=== PATIENT | male | born 1975 | race African-American/Black ===

== ENCOUNTER 2024-11-12 23:14 | Emergency (ER) | payer SELFPAY ==
[2024-11-13] MEDS ORDERED: DIPHENHYDRAMINE 50 MG/ML VIAL ONE (00:42)
[2024-11-13] MEDS ORDERED: KETOROLAC 30 MG/ML INJ ONE (00:42)
[2024-11-13] MEDS ORDERED: NA CHLORIDE 0.9% 50 ML ONE (00:43)
[2024-11-13] MEDS ORDERED: METOCLOPRAMIDE 10 MG/2mL INJ ONE (00:43)
--- NOTE | 2024-11-13 00:52 | RAD REPORT ---
EXAM: Chest Single View CLINICAL INDICATION: 49 year-old male with feeling unwell. TECHNIQUE: Single view, AP portable chest was obtained. COMPARISON: None. FINDINGS: Unremarkable cardiac and mediastinal silhouette. Heart size is normal. Low lung volumes without focal opacity, pneumothorax or pleural effusions. The visualized bones are within normal limits. IMPRESSION: No acute pulmonary abnormalities. Electronically signed by: Flower Walter MD 11/13/2024 12:44 AM CDT Transcribed Date/Time: 11/13/2024 12:51 AM
[2024-11-13 01:04] LABS: PT Prothrombin Time 11.7 SECONDS (10-13.0); Protime INR 1.03
[2024-11-13 01:08] LABS: Absolute Eosinophils 0.1 K/uL (0-0.5); Absolute Lymphocytes (CBC) 1.7 K/uL (0.7-4.9); Absolute Monocytes 0.4 K/uL (0.1-1.3); Absolute Neutrophil 1.8 K/uL (1.8-8.0); Basophils % 0.7 % (0-1.3); Eosinophils % 3.2 % (0-4.4); Hematocrit 41.1 % (39.6-49.0); Hemoglobin 13.9 g/dL (13.6-17.9); Lymphocytes % 41.8 % (15.3-44.8); MCH 28.6 pg (27.0-35.0); MCHC 33.9 g/dL (32.0-36.0); MCV 84.4 fL (80-100); MPV 7.9 fL (7.6-11.3); Neutrophils % 44.3 % (41.7-73.7); Nucleated Red Blood Cells % 0.1 % (0-0); Platelets 217 thou/uL (152-406); RBC Red Blood Cell Count 4.87 M/uL (4.33-5.43); Red Cell Distribution Width 13.5 % (12.1-15.2)
[2024-11-13 01:16] LABS: ALT/SGPT 37 U/L (16-61); AST/SGOT 19 U/L (15-37); Albumin 3.4 g/dL (3.4-5.0); Albumin/Globulin Ratio 0.9 (1.1-1.8); Alkaline Phosphatase 62 U/L (45-117); Anion Gap 6.7 mEq/L (5.0-15.0); BUN Blood Urea Nitrogen 11 mg/dL (7-18); Bicarbonate 28 mEq/L (21-32); Bilirubin Total 0.4 mg/dL (0.2-1.0); Glomerular Filtration Rate 107 ml/min (=/>90); Glucose Level 112 mg/dL (74-106); Magnesium 2.2 mg/dL (1.6-2.4); NT PRO-BNP 11 pg/mL (<125); Potassium 3.7 mEq/L (3.5-5.1); Protein, Total 7.4 g/dL (6.4-8.2); Sodium Level 137 mEq/L (136-145)
--- NOTE | 2024-11-13 01:18 | RAD REPORT ---
EXAM: Head Brain Wo Cont CLINICAL INDICATION: 49-year-old male with new onset headache. COMPARISON: None. TECHNIQUE: CT brain without contrast. This exam was performed according to our departmental dose o ptimization program which includes use of automated exposure control, adjustment of the mA and/or kV according to patient size and/or use of iterative reconstruction technique. FINDINGS: The ventricles, sulci, and cisterns are within normal limits. The mata-white matter differentiati on is preserved. There is no mass effect, midline shift, intra- or extra-axial fluid collection/acute hemorrhage. The osseous structures are unremarkable. The paranasal sinuses and m astoid air cells are clear. IMPRESSION: No acute intracranial abnormalities. Electronically signed by: Flower Walter MD 11/13/2024 12:52 AM CDT RP Due to temporary technical issues with the PACS/[email or web address] reporting system, reports are being althea d by the in-house radiologist without review as a courtesy to ensure prompt reporting the interpreting radiologist is fully responsible for the content of the report. Transcribed Date/Time: 11/13/2024 1:18 AM
[2024-11-13 01:39] LABS: Bilirubin Direct < 0.2 mg/dL (0-0.2); Bilirubin Indirect, Calculated 0.2 mg/dL (0.2-0.8); Troponin High Sensitivity < 3.0 pg/mL (<58.9)
--- NOTE | 2024-11-13 03:12 | EDPHYS ---
Physician Documentation [facility] Name: Elfego Thompson Age: 49 yrs Sex: Male : 1975 Arrival Date: 11/12/2024 Time: 23:14 Bed 20 Private MD: ED Physician Jr Tran HPI: 11/12 23:18 This 49 yrs old Black Male presents to ER via Unassigned with complaints of General sp4 complaint . 23:34 49-year-old male presents with moderate to severe headache starting 1 week ago. Patient sp4 has history of diabetes, hypertension, hyperlipidemia. Patient history of CAD prior VT. Patient reported elevated blood pressure at home today. Headache is new. 23:35 Medications at home include lisinopril, metformin, Plavix 75 mg daily.. sp4 Historical: - Allergies: 23:32 No Known Allergies; me1 - PMHx: 23:32 Myocardial infarction; Diabetes mellitus; Hypertensive disorder; hyperlipidemia; me1 - PSHx: 23:32 Coronary Angioplasty; me1 - Immunization history:: Adult Immunizations up to date. - Infectious Disease History:: Denies. - Social history:: Smoking status: Patient reports the use of cigarette tobacco products, denies chronic smoking, but will smoke occasionally, cigars. - Family history:: not pertinent. ROS: 23:35 Constitutional: Negative for fever, chills, and weight loss, positive for headache, sp4 positive for elevated blood pressure. 23:35 All other systems are negative, Exam: 23:35 Constitutional: This is a well developed, well nourished patient who is awake, alert, sp4 and in no acute distress. Head/Face: Normocephalic, atraumatic. Eyes: Pupils equal round and reactive to light, extra-ocular motions intact. Lids and lashes normal. Conjunctiva and sclera are not injected. Cornea within normal limits. Periorbital areas with no swelling, redness, or edema. ENT: Nares patent. No nasal discharge, no septal abnormalities noted. Tympanic membranes are normal and external auditory canals are clear. Oropharynx with no redness, swelling, or masses, exudates, or evidence of obstruction, uvula midline. Mucous membranes moist. Neck: Trachea midline, no thyromegaly or masses palpated, and no cervical lymphadenopathy. Supple, full range of motion without nuchal rigidity, or vertebral point tenderness. Chest/axilla: Normal chest wall appearance and motion. Nontender with no deformity. No lesions are appreciated. Cardiovascular: Regular rate and rhythm with a normal S1 and S2. No gallops, murmurs, or rubs. Normal PMI, no JVD. No pulse deficits. Respiratory: Lungs have equal breath sounds bilaterally, clear to auscultation and percussion. No rales, rhonchi or wheezes noted. No increased work of breathing, no retractions or nasal flaring. Abdomen/GI: Soft, with normal bowel sounds. No distension or tympany. No guarding or rebound. No evidence of tenderness throughout. Back: No spinal tenderness. No costovertebral tenderness. Skin: Warm, dry with normal turgor. Normal color with no rashes, no lesions, and no evidence of cellulitis. MS/ Extremity: Pulses equal, no cyanosis. Neurovascular intact. Full, normal range of motion. Neuro: Awake and alert, GCS 15, oriented to person, place, time, and situation. Cranial nerves II-XII grossly intact. Motor strength 5/5 in all extremities. Sensory grossly intact. Psych: Awake, alert, with orientation to person, place and time. Behavior, mood, and affect are within normal limits 11/13 03:14 ECG was reviewed by the Attending Physician. EKG normal sinus rhythm rate 66. sp4 Vital Signs: 11/12 23:30 BP 158 / 104; Pulse 78; Resp 19; Temp 98.4; Pulse Ox 99% ; Weight 115.67 kg; Height 6 me1 ft. 2 in. ; Pain 4/10; 11/13 02:00 BP 156 / 99; Pulse 84; Resp 18; Pulse Ox 98% ; vc1 03:30 BP 132 / 97; Pulse 86; Resp 18; Pulse Ox 99% ; vc1 11/12 23:30 Body Mass Index 32.74 (115.67 kg, 187.96 cm) va1 11/12 23:30 Pain Scale: Adult me1 NIH Stroke Scale Scores: 03:13 NIHSS Score: 0 sp4 [place] Coma Score: 11/12 23:35 Eye Response: spontaneous(4). Motor Response: obeys commands(6). Verbal Response: sp4 oriented(5). Total: 15. MDM: 11/13 01:34 Medical Screening Exam initiated sp4 03:13 ED course: EXAM: Head Brain Wo Cont CLINICAL INDICATION: 49-year-old male with new sp4 onset headache. COMPARISON: None. TECHNIQUE: CT brain without contrast. This exam was performed according to our departmental dose optimization program which includes use of automated exposure control, adjustment of the mA and/or kV according to patient size and/or use of iterative reconstruction technique. FINDINGS: The ventricles, sulci, and cisterns are within normal limits. The mata-white matter differentiation is preserved. There is no mass effect, midline shift, intra- or extra-axial fluid collection/acute hemorrhage. The osseous structures are unremarkable. The paranasal sinuses and mastoid air cells are clear. IMPRESSION: No acute intracranial abnormalities. . ED course: EXAM: Chest Single View CLINICAL INDICATION: 49 year-old male with feeling unwell. TECHNIQUE: Single view, AP portable chest was obtained. COMPARISON: None. FINDINGS: Unremarkable cardiac and mediastinal silhouette. Heart size is normal. Low lung volumes without focal opacity, pneumothorax or pleural effusions. The visualized bones are within normal limits. IMPRESSION: No acute pulmonary abnormalities. . 03:14 Differential Diagnosis altered mental status, sepsis, flu. Data reviewed: vital signs, sp4 nurses notes, lab test result(s), CBC, electrolytes, hepatic panel, EKG, radiologic studies, CT scan, plain films. Consideration of Admission/Observation Escalation of care including admission/observation considered. ED course: Patient stable for discharge home.. 11/12 23:33 Order name: Basic Metabolic Panel; Complete Time: 03:07 sp4 11/12 23:33 Order name: CBC with Diff; Complete Time: 03:07 sp4 11/12 23:33 Order name: LFT's; Complete Time: 03:07 sp4 11/12 23:33 Order name: Magnesium; Complete Time: 03:07 sp4 11/12 23:33 Order name: NT PRO-BNP; Complete Time: 03:07 sp4 11/12 23:33 Order name: PT-INR; Complete Time: 03:07 sp4 11/12 23:33 Order name: Troponin HS; Complete Time: 03:07 sp4 11/12 23:33 Order name: XRAY Chest (1 view); Complete Time: 03:07 sp4 11/12 23:33 Order name: CT Head Brain wo Cont; Complete Time: 03:07 sp4 11/12 23:33 Order name: Cardiac monitoring; Complete Time: 02:00 sp4 11/12 23:33 Order name: EKG - Nurse/Tech; Complete Time: 02:00 sp4 11/12 23:33 Order name: IV Saline Lock; Complete Time: 00:57 sp4 11/12 23:33 Order name: Labs collected and sent; Complete Time: 00:57 sp4 11/12 23:33 Order name: O2 Per Protocol; Complete Time: 00:57 sp4 11/12 23:33 Order name: O2 Sat Monitoring; Complete Time: 00:57 sp4 EC:35 Rate is 66 beats/min. Rhythm is regular, Normal Sinus Rhythm. QRS [place] is Normal. SD sp4 interval is normal. QRS interval is normal. QT interval is normal. No Q waves. T waves are Normal. No ST changes noted. Clinical impression: Normal ECG. Interpreted by me. Reviewed by me. Administered Medications: 00:57 Drug: Ketorolac IVP 30 mg IVP once Route: IVP; Site: right antecubital; vc1 02:16 Follow up: Response: No adverse reaction; Marked relief of symptoms vc1 00:57 Drug: metoCLOPramide IVP 10 mg IVP once; over 1 to 2 minutes Route: IVP; Site: right vc1 antecubital; 02:17 Follow up: Response: No adverse reaction; Marked relief of symptoms vc1 00:57 Drug: diphenhydrAMINE IVP 25 mg IVP once Route: IVP; Site: right antecubital; vc1 02:17 Follow up: Response: No adverse reaction; Marked relief of symptoms vc1 Disposition Summary: 11/13/24 03:11 Discharge Ordered Notes: Location: Home sp4 Problem: new sp4 Symptoms: have improved sp4 Condition: Stable sp4 Diagnosis - Tension-type headache sp4 - Elevated blood pressure sp4 Followup: sp4 - With: Private Physician - When: 7 - 10 days - Reason: Recheck today's complaints Discharge Instructions: - Discharge Summary Sheet sp4 - Tension Headache, Adult, [id number] sp4 Forms: - Patient Portal Instructions sp4 Prescriptions: - Fioricet 50-300-40 mg Oral capsule - take 1 capsule ORAL route every 8 hours PRN headache; 30 capsule; Refills: 0, sp4 Product Selection Permitted NIH Stroke Scale - NIH Stroke Score Date: 11/13/2024 Time: 03:13 Total Score = 0 10. Dysarthria (speech clarity - read or repeat words) - 0(Normal) 11. Extinction and Inattention (visual/tactile/auditory/spatial/personal) - 0(No abnormality) 1a. Level of Consciousness (LOC) - 0(Alert) 1b. Level of Consciousness (LOC) (Month \T\ Age) - 0(Both) 1c. LOC Commands (Open \T\ Closes Eyes/Web Application Dev Specialist) - 0(Both) 2. Best Gaze (Lateral Gaze Paresis) - 0(Normal) 3. Visual Field Loss - 0(No visual loss) 4. Facial Palsy - 0(Normal) 5a. Left Arm: Motor (10-second hold) - 0(No drift) 5b. Right Arm: Motor (10-second hold) - 0(No drift) 6a. Left Leg: Motor (5-second hold - always test supine) - 0(No drift) 6b. Right Leg: Motor (5-second hold - always test supine) - 0(No drift) 7. Limb Ataxia (finger/nose \T\ heel/tomlinson - test with eyes open) - 0(Absent) 8. Sensory Loss (pinprick arms/legs/face) - 0(Normal) 9. Best Language: Aphasia (description/naming/reading) - 0(No aphasia) Initials: sp4 Signatures: Dispatcher [employer] EDMS Isabel Michel RN RN vc1 Jr Tran MD MD sp4 Judith Luna RN RN me1 Corrections: (The following items were deleted from the chart) 11/12 23:33 23:33 BASIC METABOLIC PANEL+C.LAB.BRZ ordered. EDMS EDMS 23:33 23:33 CBC+H.LAB.BRZ ordered. EDMS EDMS 23:33 23:33 HEPATIC FUNCTION+C.LAB.BRZ ordered. EDMS EDMS 23:33 23:33 MAGNESIUM+C.LAB.BRZ ordered. EDMS EDMS 23:33 23:33 PROBNP+C.LAB.BRZ ordered. EDMS EDMS 23:33 23:33 PROTIME (+INR)+COAG.LAB.BRZ ordered. EDMS EDMS 23:33 23:33 Troponin High Sensitivity+C.LAB.BRZ ordered. EDMS EDMS 34 23:34 Chest Single View+RAD.RAD.BRZ ordered. EDMS EDMS 23:34 Head Brain Wo Cont+CT.RAD.BRZ ordered. EDMS EDMS
--- NOTE | 2024-11-13 03:12 | ER ---
Nurse's Notes [facility] Name: Elfego Thompson Age: 49 yrs Sex: Male : 1975 Arrival Date: 11/12/2024 Time: 23:14 Bed 20 Private MD: Diagnosis: Tension-type headache;Elevated blood pressure Presentation: 11/12 23:30 Chief complaint: Patient states: c/o headache for one week. Pain 4/10. Took bp at home me1 and sbp was 175. Coronavirus screen: At this time, the client does not indicate any symptoms associated with coronavirus-19. Ebola Screen: No symptoms or risks identified at this time. Initial Sepsis Screen: Does the patient meet any 2 criteria? No. Patient's initial sepsis screen is negative. Does the patient have a suspected source of infection? No. Patient's initial sepsis screen is negative. Risk Assessment: Do you want to hurt yourself or someone else? Patient reports no desire to harm self or others. Onset of symptoms was November 05, 2024. 23:30 Method Of Arrival: Ambulatory ct1 23:30 Acuity: ALEX 3 me1 Triage Assessment: 11/13 00:00 Headache History: Denies prior headaches. General: Appears in no apparent distress. vc1 uncomfortable, obese, well groomed, well developed, well nourished, Behavior is calm, cooperative, appropriate for age. Pain: Complains of pain in head Pain does not radiate. Pain currently is 8 out of 10 on a pain scale. Pain began gradually, Also complains of no other associated symptoms. EENT: No deficits noted. No signs and/or symptoms were reported regarding the EENT system. Neuro: Level of Consciousness is awake, alert, obeys commands, Oriented to person, place, time, situation, Appropriate for age. Cardiovascular: Heart tones S1 S2 present Capillary refill < 3 seconds Patient's skin is warm and dry. Respiratory: Airway is patent Respiratory effort is even, unlabored, Respiratory pattern is regular, symmetrical, Breath sounds are clear bilaterally. GI: No deficits noted. No signs and/or symptoms were reported involving the gastrointestinal system. : No deficits noted. No signs and/or symptoms were reported regarding the genitourinary system. Derm: Skin is intact, is healthy with good turgor, Skin is dry, Skin is normal, Skin temperature is warm. Musculoskeletal: Circulation, motion, and sensation intact. Range of motion: intact in all extremities. Historical: - Allergies: 11/12 23:32 No Known Allergies; me1 - PMHx: 23:32 Myocardial infarction; Diabetes mellitus; Hypertensive disorder; hyperlipidemia; me1 - PSHx: 23:32 Coronary Angioplasty; me1 - Immunization history:: Adult Immunizations up to date. - Infectious Disease History:: Denies. - Social history:: Smoking status: Patient reports the use of cigarette tobacco products, denies chronic smoking, but will smoke occasionally, cigars. - Family history:: not pertinent. Screenin/23 00:00 [facility] ED Fall Risk Assessment (Adult) History of falling in the last 3 months, vc1 including since admission No falls in past 3 months (0 pts) Confusion or Disorientation No (0 pts) Intoxicated or Sedated No (0 pts) Impaired Gait No (0 pts) Mobility Assist Device Used No (0 pt) Altered Elimination No (0 pt) Score/Fall Risk Level 0 - 2 = Low Risk Oriented to surroundings, Maintained a safe environment, Educated pt \T\ family on fall prevention, incl call for assistance when getting out of bed. Abuse screen: Denies threats or abuse. Nutritional screening: No deficits noted. Tuberculosis screening: No symptoms or risk factors identified. Assessment: 02:16 Reassessment: Patient and/or family updated on plan of care and expected duration. Pain vc1 level reassessed. Patient is alert, oriented x 3, equal unlabored respirations, skin warm/dry/pink. Patient states feeling better. Patient states symptoms have improved. Pain: Denies pain. 03:52 Reassessment: Patient appears in no apparent distress at this time. No changes from vc1 previously documented assessment. Patient and/or family updated on plan of care and expected duration. Pain level reassessed. Patient is alert, oriented x 3, equal unlabored respirations, skin warm/dry/pink. Vital Signs: 11/12 23:30 BP 158 / 104; Pulse 78; Resp 19; Temp 98.4; Pulse Ox 99% ; Weight 115.67 kg; Height 6 me1 ft. 2 in. ; Pain 4/10; 11/13 02:00 BP 156 / 99; Pulse 84; Resp 18; Pulse Ox 98% ; vc1 03:30 BP 132 / 97; Pulse 86; Resp 18; Pulse Ox 99% ; vc1 11/12 23:30 Body Mass Index 32.74 (115.67 kg, 187.96 cm) me1 11/12 23:30 Pain Scale: Adult [facility] [place] Coma Score: 11/12 23:35 Eye Response: spontaneous(4). Motor Response: obeys commands(6). Verbal Response: sp4 oriented(5). Total: 15. NIH Stroke Scale Scores: 11/13 03:13 NIHSS Score: 0 sp4 ED Course: 11/12 23:17 Patient arrived in ED. jj6 23:18 Jr Tran MD is Attending Physician. sp4 23:32 Triage completed. me1 23:32 Arm band placed on Patient placed in an exam room. me1 23:56 Isabel Michel, CHUCK is Primary Nurse. vc1 23:57 XRAY Chest (1 view) In Process Unspecified. EDMS 11/13 00:00 Patient has correct armband on for positive identification. Bed in low position. Call vc1 light in reach. vehicle monitor technician on. Pulse ox on. NIBP on. 00:10 Missed attempt(s): 20 gauge in right hand. Bleeding controlled, band aid applied, vc1 catheter tip intact. 00:15 CT Head Brain wo Cont In Process Unspecified. EDMS 00:39 Inserted saline lock: 20 gauge in right antecubital area, using aseptic technique. kmf Blood collected. Flushed with 10 mL NS. 00:39 Initial lab(s) drawn, by ED staff, sent to [facility] 03:52 No provider procedures requiring assistance completed. IV discontinued, intact, vc1 bleeding controlled, No redness/swelling at site. Pressure dressing applied. 03:54 Provided Education on: sherry. vc1 Administered Medications: 00:57 Drug: Ketorolac IVP 30 mg IVP once Route: IVP; Site: right antecubital; vc1 02:16 Follow up: Response: No adverse reaction; Marked relief of symptoms vc1 00:57 Drug: metoCLOPramide IVP 10 mg IVP once; over 1 to 2 minutes Route: IVP; Site: right vc1 antecubital; 02:17 Follow up: Response: No adverse reaction; Marked relief of symptoms vc1 00:57 Drug: diphenhydrAMINE IVP 25 mg IVP once Route: IVP; Site: right antecubital; vc1 02:17 Follow up: Response: No adverse reaction; Marked relief of symptoms vc1 Medication: 02:14 VIS not applicable for this client. vc1 Outcome: 03:11 Discharge ordered by . sp4 03:53 Discharged to home ambulatory, vc1 03:53 Condition: stable 03:53 Discharge instructions given to patient, Instructed on discharge instructions, follow up and referral plans. medication usage, Demonstrated understanding of instructions, follow-up care, medications, Prescriptions given X 1, 03:54 Patient left the ED. vc1 NIH Stroke Scale - NIH Stroke Score Date: 11/13/2024 Time: 03:13 Total Score = 0 10. Dysarthria (speech clarity - read or repeat words) - 0(Normal) 11. Extinction and Inattention (visual/tactile/auditory/spatial/personal) - 0(No abnormality) 1a. Level of Consciousness (LOC) - 0(Alert) 1b. Level of Consciousness (LOC) (Month \T\ Age) - 0(Both) 1c. LOC Commands (Open \T\ Closes Eyes/[employer]lite Grinder) - 0(Both) 2. Best Gaze (Lateral Gaze Paresis) - 0(Normal) 3. Visual Field Loss - 0(No visual loss) 4. Facial Palsy - 0(Normal) 5a. Left Arm: Motor (10-second hold) - 0(No drift) 5b. Right Arm: Motor (10-second hold) - 0(No drift) 6a. Left Leg: Motor (5-second hold - always test supine) - 0(No drift) 6b. Right Leg: Motor (5-second hold - always test supine) - 0(No drift) 7. Limb Ataxia (finger/nose \T\ heel/tomlinson - test with eyes open) - 0(Absent) 8. Sensory Loss (pinprick arms/legs/face) - 0(Normal) 9. Best Language: Aphasia (description/naming/reading) - 0(No aphasia) Initials: sp4 Signatures: Dispatcher [employer] Debbie [email or web address] Isabel Michel RN RN vc1 Jr Tran MD MD sp4 Judith Luna RN RN me1 Rosa Chris [facility]
[2024-11-13 04:06] VITALS: TEMP 98.4
[2024-11-13 04:18] VITALS: BP 132/97; O2SAT 99
--- NOTE | 2024-11-14 12:03 | EKG ---
Test Date: 2024-11-13 Test Time: 01:35:20 Securities Clerk: MATIAS MEASUREMENT RESULTS: Intervals: Rate: 66 W[place]: 174 QRSD: 98 QT: 436 QTc: 457 [place]: P: 26 [place]: 174 QRS: -21 T: -4 INTERPRETIVE STATEMENTS: Normal sinus rhythm Normal ECG No previous ECG available for comparison Electronically Signed On 11-14-24 11:59:54 CDT by Bernard Braga
== END 2024-11-13 03:54 | disposition home or self-care (01) ==
LOC: ER 23:14
DX: G44.209 Tension-type headache, unspecified, not intractable (principal); I10 Essential (primary) hypertension
CPT/HCPCS: 36415; 70450; 71045; 80048; 80076; 83735; 83880; 84484; 85025; 85610; 93005; 96374; 96375; 99285; J1200; J2765